=== PATIENT | male | born 1985 | race Caucasian/White ===

== ENCOUNTER 2022-04-27 05:23 | Emergency (ER) | payer MEDICAID ==
[~2022-04-27] VITALS: Ht 180.3 cm; Wt 66.8 kg
[~2022-04-27 05:23] MED LIST: FAMO20TA44 PO; OMEP20CA15 PO; SUCR1ORA2 PO
[2022-04-27] MEDS ORDERED: SULF1TAB45 PO (05:59)
[2022-04-27] MEDS ORDERED: CEPH-585 PO (05:59)
[2022-04-27] MEDS ORDERED: sulfamethoxazole/trimethoprim DS (800/160mg) tablet PO ONE (06:05)
[2022-04-27] MEDS ORDERED: cephalexin 250mg capsule PO ONE (06:05)
[2022-04-27 06:28] VITALS: BP 126/79
== END 2022-04-27 06:31 | disposition home or self-care (01) ==
LOC: ER 05:24
DX: L03.90 Cellulitis, unspecified (principal); G89.29 Other chronic pain
CPT/HCPCS: 99283

== ENCOUNTER 2022-08-31 01:02 | Emergency (ER) | payer SELFPAY ==
[~2022-08-31 01:02] MED LIST changes: +CEPH-585 PO
[2022-08-31] MEDS ORDERED: SULF1TAB49 PO (18:10)
[2022-08-31] MEDS ORDERED: CEPH-585 PO (18:10)
== END 2022-08-31 04:33 | disposition left against medical advice (07) ==
LOC: ER 01:03
DX: N10 Acute pyelonephritis (principal); Z53.21 Procedure and treatment not carried out due to patient leaving prior to being seen by health care provider

== ENCOUNTER 2022-08-31 15:47 | Emergency (ER) | payer MEDICAID ==
[~2022-08-31] VITALS: Ht 180.3 cm; Wt 70.0 kg
[2022-08-31 15:51] VITALS: BP 144/100
[2022-08-31] MEDS ORDERED: SULF1TAB49 PO (18:10)
[2022-08-31] MEDS ORDERED: CEPH-585 PO (18:10)
[2022-08-31] MEDS ORDERED: cephalexin 250mg capsule PO ONE (18:25)
[2022-08-31] MEDS ORDERED: sulfamethoxazole/trimethoprim DS (800/160mg) tablet PO ONE (18:30)
== END 2022-08-31 18:44 | disposition home or self-care (01) ==
LOC: ER 15:48
DX: L03.116 Cellulitis of left lower limb (principal); G89.29 Other chronic pain; Z79.1 Long term (current) use of non-steroidal anti-inflammatories (NSAID); Z79.2 Long term (current) use of antibiotics
CPT/HCPCS: 99283

== ENCOUNTER 2022-11-29 00:19 | Emergency (ER) | payer MEDICAID ==
[~2022-11-29] VITALS: Ht 180.3 cm; Wt 75.0 kg
[2022-11-29] MEDS ORDERED: CEPH250T PO (01:34)
[2022-11-29] MEDS ORDERED: DOXY100C76 PO (01:34)
[2022-11-29] MEDS: DOXYCYCLINE 100MG CAPSULE PO STA (01:41)
[2022-11-29] MEDS: cephalexin 250mg capsule PO ONE (01:41)
[2022-11-29] MEDS: ondansetron 4mg rapidly disintigrating tab PO ONE (01:41)
[2022-11-29] MEDS: bacitracin 15gm ointment TP ONE (01:42)
== END 2022-11-29 01:50 | disposition home or self-care (01) ==
LOC: ER 00:19
DX: L02.415 Cutaneous abscess of right lower limb (principal); G89.29 Other chronic pain; Z86.14 Personal history of Methicillin resistant Staphylococcus aureus infection
CPT/HCPCS: 99284; A6258; A6449

== ENCOUNTER 2023-02-21 03:51 | Emergency (ER) | payer MEDICAID ==
[~2023-02-21] VITALS: Ht 180.3 cm; Wt 165.0 kg
[2023-02-21 03:52] VITALS: BP 134/96
== END 2023-02-21 08:02 | disposition left against medical advice (07) ==
LOC: ER 03:51
DX: L02.511 Cutaneous abscess of right hand (principal); A49.02 Methicillin resistant Staphylococcus aureus infection, unspecified site; R68.83 Chills (without fever); R25.1 Tremor, unspecified; Z53.21 Procedure and treatment not carried out due to patient leaving prior to being seen by health care provider
CPT/HCPCS: 99281

== ENCOUNTER 2024-07-10 09:20 | Emergency (ER) | payer MEDICAID ==
[~2024-07-10] VITALS: Ht 180.3 cm; Wt 76.0 kg
[~2024-07-10 09:20] MED LIST changes: -CEPH-585 PO
[2024-07-10 09:23] VITALS: BP 134/82; PULSE 100; RESP 20; O2SAT 100
[2024-07-10] MEDS ORDERED: HYDR-3686 PO (11:47)
[2024-07-10] MEDS: hydrOXYzine 25 MG tablet PO ONE (11:54)
[2024-07-10 11:57] VITALS: TEMP 97.2
== END 2024-07-10 11:59 | disposition home or self-care (01) ==
LOC: ER 09:21
DX: B34.9 Viral infection, unspecified (principal); F15.23 Other stimulant dependence with withdrawal; Z11.52 Encounter for screening for COVID-19; Z20.822 Contact with and (suspected) exposure to COVID-19
CPT/HCPCS: 36415; 87811; 99283; Q0177

== ENCOUNTER 2025-02-25 08:52 | Emergency (ER) | payer MEDICAID ==
[~2025-02-25] VITALS: Ht 180.3 cm; Wt 74.0 kg
[2025-02-25 08:53] VITALS: BP 149/103; PULSE 104; RESP 16; TEMP 98.2; O2SAT 96
--- NOTE | 2025-02-25 10:44 | Physician Documentation ---
History of Present Illness ~ Chief Complaint: Medical Clearance Stated Complaint: MED CLEARANCE Time Seen by MD: 09:02 Primary Medical Doctor: NONE HPI Patient is seen today with complaints of needing med clearance to [facility]. Patient states his drug of choice is methamphetamine that states his last use was earlier this morning. Patient denies any alcohol use. He denies any chest pain shortness of breath or abdominal pain or nausea, vomiting, diarrhea. He has no other concern or complaint at this time. Tetanus within 5 years?: Yes Medication Reconciliation Allergies: Coded Allergies: No Known Allergies (Unverified , 11/29/22) Scheduled Famotidine (Pepcid AC), 1 TAB PO BIDAC Omeprazole (Omeprazole), 2 CAP PO BIDAC Sucralfate (Carafate), 10 ML PO Q12H Past Medical History Past Medical History: Chronic Pain, Cellulitis, MRSA Abscess Past Surgical History: abdominal surgery Alcohol Use: Occasionally Drug Use: none Lives In: Home Occupation: employed Review of Systems Constitutional: Denies: chills, fever, weakness Eyes: Denies: pain, blurred vision ENT: Denies: ear pain, nose pain, throat pain, mouth pain Respiratory: Denies: cough, shortness of breath Cardiovascular: Denies: chest pain, palpitations Gastrointestinal: Denies: abdominal pain, nausea, vomiting Genitourinary: Denies: burning, dysuria Male Genitalia: Denies: penile discharge, testicular pain Neurological: Denies: headache, dizziness Musculoskeletal: Denies: pain, swelling Integumentary: Denies: rash, lesions Allergic/Immunologic: Denies: hives, itching Hematologic/Lymphatic: Denies: no symptoms reported Psychiatric: Denies: depression, anxiety Physical Exam Vital Signs: Temperature: 98.2, Source: Oral, Heart Rate: 104, Respiratory Rate: 16, BP: 149/103, Pulse Oximetry: 96, Weight: 74.000 Oxygen Flow Rate: 0 Physical Exam General: Awake and Alert, no acute distress. HEENT: Conjunctiva pink, Sclera clear, Mucus Membranes moist. Neck: Supple without masses and tenderness. Resp: Unlabored. Lungs clear to auscultation bilaterally. Heart: Regular Rate and rhythm, normal S1 and S2 without murmur, rub or gallop. Abdomen: Soft and non tender no organomegaly Extremities: No cyanosis,clubbing or edema. Skin: Warm and Dry. Progress Results/Orders Results/Orders Vital Signs 02/25/25 08:53 Temp 98.2 Pulse 104 Resp 16 B/P (MAP) 149/103 Pulse Ox 96 O2 Flow Rate 0 Medical Decision Making Findings Patient is seen today with complaints of needing med clearance to [facility]. Patient states his drug of choice is methamphetamine that states his last use was earlier this morning. Patient denies any alcohol use. He denies any chest pain shortness of breath or abdominal pain or nausea, vomiting, diarrhea. He has no other concern or complaint at this time. Patient is medically cleared to enter [facility] for recovery program from methamphetamines. Patient will return to ED with any worsening, concerning or changing symptoms. Departure Disposition: 01 HOME / SELF CARE / HOMELESS Impression: Primary Impression: General medical exam Condition: Stable Discharge Instructions: Medical Screening Exam Additional Instructions: Patient is medically cleared to enter [facility] for recovery program from methamphetamines. Patient will return to ED with any worsening, concerning or changing symptoms. Referrals: NO PRIMARY CARE PROVIDER (PCP) Signature Scribe Signature: No scribe Attestation: No scribe JAMES BATES PAC February 25, 2025 10:44
== END 2025-02-25 11:09 | disposition home or self-care (01) ==
LOC: ER 08:52
DX: Z02.9 Encounter for administrative examinations, unspecified (principal); Z79.899 Other long term (current) drug therapy; Z72.89 Other problems related to lifestyle
CPT/HCPCS: 99281